=== PATIENT | female | born 1955 | race Caucasian/White ===

== ENCOUNTER 2016-03-23 15:29 | Emergency (ER) | payer MEDICARE, OTHER ==
[~2016-03-23] VITALS: Ht 152.4 cm; Wt 70.0 kg
[2016-03-23 15:29] VITALS: BP 135/71; PULSE 58; RESP 16; TEMP 98.2; O2SAT 93
[~2016-03-23 15:29] MED LIST: ALBU1AER INH; ATEN-100 PO; CYCL-36 PO; DILA100C PO; FURO20 PO; GEMF600T PO; HYDR-3133 PO; HYDR50TA94 PO; ISOS30TA3 PO; LEVA750T PO; LORA-392 PO; METF500 PO; MIRA33502 PO; MIRT30TA PO; NEUR600T PO; NYST100010 TOP; OMEP20TA PO; PRAV40TA2 PO; PRED10 PO; RISP1 PO; SPIRCAP INH; TYLE3 PO; Z.0.OXYGENDME NC; ZIPR80CA PO
[2016-03-23 15:44] VITALS: O2SAT 94
[2016-03-23] MEDS ORDERED: methylPREDNISolone SOD SUCC 125 MG/2 ML VIAL IVP ONE (15:45)
[2016-03-23] MEDS ORDERED: SODIUM CHLORIDE 0.9% FLUSH 5 ML FLUSH IVF PRN (15:45)
--- NOTE | 2016-03-23 15:46 | PD ---
HPI Chief Complaint: Respiratory Symptoms Time Seen by Provider: 15:33 Travel History International Travel<30 days: No Contact w/Intl Traveler<30days: No Traveled to known affect area: No History of Present Illness HPI The patient was seen and examined in the presence of the nurse. This patient is sent from her assisted living facility for shortness of breath. She has chronic COPD and continues to smoke. She has a nebulizer but didn't use it today. Her insight seems quite poor. Denies chest pain or syncope. She has some congestion and cough lately. Duration of symptoms is 2 days. Severity is moderate. No alleviating factors. PFSH Past Medical History Arthritis: No Asthma: No Autoimmune Disease: No Blood Disorders: No Bipolar Disorder: Yes Anxiety: Yes Depression: Yes Heart Rhythm Problems: No Cancer: No Cardiovascular Problems: Yes High Cholesterol: Yes (NO LONGER TAKING MEDICATION) Chemotherapy: No Chest Pain: No Congestive Heart Failure: Yes (on lasix) COPD: No Cerebrovascular Accident: No Coronary Artery Disease: No Diabetes: Yes Diminished Hearing: No Endocrine: No Gastrointestinal Disorders: No GERD: No Glaucoma: No Genitourinary: No Headaches: No Hepatitis: No Hiatal Hernia: No Hypertension: Yes Immune Disorder: No Implanted Vascular Access Dvce: No Insomnia: Yes Musculoskeletal: Yes Neurologic: Yes Psychiatric: Yes Reproductive: No Respiratory: Yes Migraines: No Myocardial Infarction: No Radiation Therapy: No Renal Failure: No Seizures: Yes (LAST SEIZURE WAS MAR 2011) Sickle Cell Disease: No Sleep Apnea: No Thyroid Disease: No Triglycerides - High: Yes Ulcer: No Menopausal: Yes : 1 Para: 1 Past Surgical History Abdominal Surgery: No AICD: No Appendectomy: No Arteriovenous Shunt: No Cardiac Surgery: No Section: Yes (1981) Cholecystectomy: No Ear Surgery: No Endocrine Surgery: No Eye Surgery: No Genitourinary Surgery: No Gynecologic Surgery: Yes (C SECTION 1981) Insulin Pump: No Joint Replacement: No Neurologic Surgery: No Oral Surgery: No Pacemaker: No Thoracic Surgery: No Other Surgery: No Social History Alcohol Use: No (denies) Tobacco Use: Yes (1PK A DAY quit one month ago, has been using patch) Substance Use: No Allergies-Medications (Allergen,Severity, Reaction): Coded Allergies: No Known Allergies (Verified , 05/17/15) Reported Meds & Prescriptions Reported Meds & Active Scripts Active Reported Albuterol Neb (Albuterol Sulfate) 2.5 Mg/3 Ml Neb 1 Vial NEB QID PRN Ibuprofen 800 Mg Tab 800 Mg PO TID PRN Dicyclomine (Dicyclomine HCl) 20 Mg Tab 20 Mg PO Q6HR PRN Proair Hfa 8.5 GM Inh (Albuterol Sulfate) 90 Mcg/Act Aer 2 Puff INH Q6H PRN 108 mcg/actuation Trazodone (Trazodone HCl) 150 Mg Tab 300 Mg PO HS Dilantin (Phenytoin Extended) 100 Mg Cap 300 Mg PO MOFR Take 3 capsule (300mg) at bedtime on Tuesday and Tuesday Dilantin (Phenytoin Extended) 100 Mg Cap 200 Mg PO SUTUWETHSA Take 2 capsules (200mg) at bedtime on Tuesday,Tuesday,Tuesday, and Tuesday Tizanidine (Tizanidine HCl) 4 Mg Tab 4 Mg PO TID Tylenol-Codeine #4 (Acetaminophen-Codeine) 300-60 mg Tab 1 Tab PO TID Lyrica (Pregabalin) 75 Mg Cap 75 Mg PO BID Claritin (Loratadine) 10 Mg Cap 10 Mg PO DAILY Geodon (Ziprasidone) 80 Mg Cap 80 Mg PO BID Lorazepam 0.5 Mg Tab 0.5 Mg PO BID Omeprazole 20 Mg Cap 20 Mg PO BID Tradjenta (Linagliptin) 5 Mg Tab 5 Mg PO DAILY Lasix (Furosemide) 20 Mg Tab 20 Mg PO DAILY Cefdinir 300 Mg Cap 300 Mg PO Q12HR 10 Days Isosorbide Mononitrate ER (Isosorbide Mononitrate) 30 Mg Teresa 30 Mg PO DAILY Atenolol 25 Mg Tab 25 Mg PO DAILY Review of Systems General / Constitutional: No: Fever Eyes: No: Visual changes HENT: No: Headaches Cardiovascular: No: Chest Pain or Discomfort Respiratory: Positive: Cough, Shortness of Breath, Wheezing Gastrointestinal: No: Abdominal Pain Genitourinary: No: Dysuria Musculoskeletal: No: Pain Skin: No Rash Neurologic: No: Weakness Psychiatric: No: Depression Endocrine: No: Polydipsia Hematologic/Lymphatic: No: Easy Bruising Physical Exam Narrative GENERAL: Well-nourished, well-developed patient in no apparent distress. SKIN: Warm and dry. HEAD: Atraumatic. Normocephalic. EYES: Pupils equal and round. No scleral icterus. No injection or drainage. ENT: No nasal bleeding or discharge. Mucous membranes pink and moist. NECK: Trachea midline. No JVD. CARDIOVASCULAR: Regular rate and rhythm. No murmur appreciated. RESPIRATORY: No accessory muscle use. Some rhonchi noted. Breath sounds equal bilaterally. GASTROINTESTINAL: Abdomen soft, non-tender, nondistended. Hepatic and splenic margins not palpable. MUSCULOSKELETAL: No obvious deformities. No clubbing. No cyanosis. No edema. NEUROLOGICAL: Awake and alert. No obvious cranial nerve deficits. Motor grossly within normal limits. Normal speech. PSYCHIATRIC: Appropriate mood and affect; insight and judgment seems weak Data Data Last Documented VS Vital Signs Date Time Temp Pulse Resp B/P Pulse Ox O2 Delivery O2 Flow Rate FiO2 03/23/16 15:44 94 Nasal Cannula 4 03/23/16 15:42 16 03/23/16 15:29 98.2 58 135/71 Orders Iv Access Insert/Monitor (03/23/16 15:41) Ecg Monitoring (03/23/16 15:41) Oximetry (03/23/16 15:41) Oxygen Administration (03/23/16 15:41) Chest, Single Ap (03/23/16 15:41) Sodium Chloride 0.9% Flush (Ns Flush) (03/23/16 15:45) Methylprednisolone So Succ Inj (Solumedr (03/23/16 15:45) Albuterol-Ipratropium Neb (Duoneb Neb) (03/23/16 15:45) MDM Medical Decision Making Medical Screen Exam Complete: Yes Emergency Medical Condition: Yes Medical Record Reviewed: Yes Differential Diagnosis Differential diagnosis includes COPD, asthma, pneumonia, bronchitis, CHF Narrative Course I have reviewed the patient's electronic medical record. Reviewed her shelter paperwork and medication list IV placed I gave her series of 3 nebulizer treatments and IV Solu-Medrol Saturations are low to mid 90s prior to treatment I reviewed her chest x-ray which is normal On recheck she feels improved. Saturation is 94% on room air She has nebulizers and steroids at the facility she lives. She also says she has no intention to stop smoking and will smoke when she gets home. I don't see any indication for hospital stay here. Diagnosis Primary Impression: COPD exacerbation Additional Impression: SOB (shortness of breath) Additional Instructions: The patient was advised to follow up with their physician and return if they worsen. Med/Other Pt SpecificInfo: Other Disposition: 03 DISCHARGE TO SNF Condition: Stable David James MD Mar 23, 2016 15:46
[2016-03-23] MEDS: RESP: ALBUTEROL 2.5 MG/IPRATROPIUM 0.5 MG NEB (SCH) INH ×2 (15:52→15:53)
--- NOTE | 2016-03-23 16:10 | RADRPT ---
EXAM DATE/TIME: 03/23/2016 15:48 [facility] COMPARISON: CHEST SINGLE AP, May 19, 2015, 2:07. INDICATIONS : Short of breath MEDICAL HISTORY : Chronic obstructive pulmonary disease. SURGICAL HISTORY : None. ENCOUNTER: Initial ACUITY: 1 day PAIN SCORE: 0/10 LOCATION: Bilateral chest FINDINGS: A single view of the chest demonstrates the lungs to be symmetrically aerated without evidence of mas s, infiltrate or effusion. There is hyperaeration of both lung shirley. The cardiomediastinal contour s are unremarkable. Osseous structures are intact. CONCLUSION: No acute pulmonary infiltrates. Rehan Bundy MD on March 23, 2016 at 16:08 Board Certified Radiologist. This report was verified electronically.
[2016-03-23] MEDS ORDERED: LYRI75CA PO (16:45)
[2016-03-23] MEDS ORDERED: TIZA4TAB PO (16:45)
[2016-03-23] MEDS ORDERED: IBUP800T23 PO (16:45)
[2016-03-23] MEDS ORDERED: ATEN25TA PO (16:45)
[2016-03-23] MEDS ORDERED: ALBU0.08 NEB (16:45)
[2016-03-23] MEDS ORDERED: TRAZ150T75 PO (16:45)
[2016-03-23] MEDS ORDERED: ISOS30TA3 PO (16:45)
[2016-03-23] MEDS ORDERED: CEFD300C PO (16:45)
[2016-03-23] MEDS ORDERED: DILA100C PO ×2 (16:45)
[2016-03-23] MEDS ORDERED: DICY20TA10 PO (16:45)
[2016-03-23] MEDS ORDERED: TRAZ50TA12 PO (16:45)
[2016-03-23] MEDS ORDERED: FURO1TAB62 PO (16:45)
[2016-03-23] MEDS ORDERED: TRAD5TAB PO (16:45)
[2016-03-23] MEDS ORDERED: TYLETAB36 PO (16:45)
[2016-03-23] MEDS ORDERED: GEOD80CA PO (16:45)
[2016-03-23] MEDS ORDERED: LORA-373 PO (16:45)
[2016-03-23] MEDS ORDERED: OMEP20CA2 PO (16:45)
[2016-03-23] MEDS ORDERED: CLAR10CA3 PO (16:45)
[2016-03-23] MEDS ORDERED: ALBUAER3 INH (16:45)
== END 2016-03-23 18:01 ==
LOC: NEPC 15:29
DX: J44.1 Chronic obstructive pulmonary disease with (acute) exacerbation (principal); F17.200 Nicotine dependence, unspecified, uncomplicated
CPT/HCPCS: 71010; 94640; 94664; 96374; 99284; J2930

== ENCOUNTER 2016-04-04 12:23 | Emergency (ER) | payer MEDICARE, OTHER ==
[~2016-04-04] VITALS: Ht 152.4 cm; Wt 75.0 kg
[~2016-04-04 12:23] MED LIST changes: +ALBU0.08 NEB; -ALBU1AER INH; +ALBUAER3 INH; -ATEN-100 PO; +ATEN25TA PO; +CEFD300C PO; +CLAR10CA3 PO; -CYCL-36 PO; +DICY20TA10 PO; +FURO1TAB62 PO; -FURO20 PO; -GEMF600T PO; +GEOD80CA PO; -HYDR-3133 PO; -HYDR50TA94 PO; +IBUP800T23 PO; -LEVA750T PO; +LORA-373 PO; -LORA-392 PO; +LYRI75CA PO; -METF500 PO; -MIRA33502 PO; -MIRT30TA PO; -NEUR600T PO; -NYST100010 TOP; +OMEP20CA2 PO; -OMEP20TA PO; -PRAV40TA2 PO; -PRED10 PO; -RISP1 PO; -SPIRCAP INH; +TIZA4TAB PO; +TRAD5TAB PO; +TRAZ150T75 PO; +TRAZ50TA12 PO; -TYLE3 PO; +TYLETAB36 PO; -Z.0.OXYGENDME NC; -ZIPR80CA PO
[2016-04-04 12:26] VITALS: BP 103/60; PULSE 67; RESP 16; TEMP 97.9; O2SAT 92
[2016-04-04] MEDS ORDERED: SODIUM CHLOR 0.9% 1000 ML INJ 1,000 ML IV ONE (12:50)
--- NOTE | 2016-04-04 12:57 | PD ---
HPI Chief Complaint: GI Complaint Time Seen by Provider: 12:52 Travel History International Travel<30 days: No Contact w/Intl Traveler<30days: No Traveled to known affect area: No History of Present Illness HPI 60-year-old female that presents to the ED for evaluation of constipation. Per patient she's been constipated for 32 days. She tells me that she has not had a good bowel movement since. She does tell me that she takes a lot of pain medication secondary to back problems. She takes Lyrica and opiates. She denies any chest pain or shortness of breath. No cold like symptoms. Per patient her COPD was improved after being evaluated a week ago. When asked why she didn't mention this to the doctor on her previous visit a week ago she states that she forgot. She states that she's been trying everything over-the- counter. She is not specific as to what she has been taking. She lives an assisted-living facility secondary to chronic medical problems and seizure disorder. Of note patient appears to have poor insight and this appears to be the same observation that previous providers have made. She does complain of some abdominal pain which is 10 out of 10. Per patient she feels like she has to go but she has not. She denies any urinary issues state that she takes a diuretic with good results. She denies any cough or runny nose. No other medical problems. Unclear if she is mention this to her primary care doctor. She denies any blood. She denies any recent surgeries to her abdomen other than a . PFSH Past Medical History Arthritis: No Asthma: No Autoimmune Disease: No Blood Disorders: No Bipolar Disorder: Yes Anxiety: Yes Depression: Yes Heart Rhythm Problems: No Cancer: No Cardiovascular Problems: Yes (htn) High Cholesterol: Yes (NO LONGER TAKING MEDICATION) Chemotherapy: No Chest Pain: No Congestive Heart Failure: Yes (on lasix) COPD: No Cerebrovascular Accident: No Coronary Artery Disease: No Diabetes: Yes Diminished Hearing: No Endocrine: No Gastrointestinal Disorders: No GERD: No Glaucoma: No Genitourinary: No Headaches: No Hepatitis: No Hiatal Hernia: No Hypertension: Yes Immune Disorder: No Implanted Vascular Access Dvce: No Insomnia: Yes Musculoskeletal: Yes Neurologic: Yes Psychiatric: Yes Reproductive: No Respiratory: Yes Migraines: No Myocardial Infarction: No Radiation Therapy: No Renal Failure: No Seizures: Yes (LAST SEIZURE WAS MAR 2011) Sickle Cell Disease: No Sleep Apnea: No Thyroid Disease: No Triglycerides - High: Yes Ulcer: No ?: Not Menopausal: Yes : 1 Para: 1 Past Surgical History Abdominal Surgery: No AICD: No Appendectomy: No Arteriovenous Shunt: No Cardiac Surgery: No Section: Yes (1981) Cholecystectomy: No Ear Surgery: No Endocrine Surgery: No Eye Surgery: No Genitourinary Surgery: No Gynecologic Surgery: Yes Hysterectomy: Yes Insulin Pump: No Joint Replacement: No Neurologic Surgery: No Oral Surgery: No Pacemaker: No Thoracic Surgery: No Other Surgery: No Social History Alcohol Use: No (denies) Tobacco Use: Yes (1PK A DAY quit one month ago, has been using patch) Substance Use: No Allergies-Medications (Allergen,Severity, Reaction): Coded Allergies: No Known Allergies (Verified , 05/17/15) Reported Meds & Prescriptions Reported Meds & Active Scripts Active Miralax Powder (Polyethylene Glycol 3350 Powder) 17 Gm Powd 17 Gm PO DAILY Mix and dissolve one measuring cap-ful (17 grams) in water or juice. Golytely 236 gm (Polyethylene Glycol/Electrolytes) 4,000 Ml Soln 4,000 Ml PO ONCE PRN Reported Tradjenta (Linagliptin) 5 Mg Tab 5 Mg PO DAILY Albuterol Neb (Albuterol Sulfate) 2.5 Mg/3 Ml Neb 1 Vial NEB QID PRN Dicyclomine (Dicyclomine HCl) 20 Mg Tab 20 Mg PO Q6HR PRN Proair Hfa 8.5 GM Inh (Albuterol Sulfate) 90 Mcg/Act Aer 2 Puff INH Q6H PRN 108 mcg/actuation Trazodone (Trazodone HCl) 150 Mg Tab 300 Mg PO HS Dilantin (Phenytoin Extended) 100 Mg Cap 300 Mg PO MOFR Take 3 capsule (300mg) at bedtime on Tuesday and Tuesday Dilantin (Phenytoin Extended) 100 Mg Cap 200 Mg PO SUTUWETHSA Take 2 capsules (200mg) at bedtime on Tuesday,Tuesday,Tuesday, and Tuesday Trazodone (Trazodone HCl) 50 Mg Tab 50 Mg PO DAILY Tizanidine (Tizanidine HCl) 4 Mg Tab 4 Mg PO TID Tylenol-Codeine #4 (Acetaminophen-Codeine) 300-60 mg Tab 1 Tab PO TID Lyrica (Pregabalin) 75 Mg Cap 75 Mg PO BID Claritin (Loratadine) 10 Mg Cap 10 Mg PO DAILY Geodon (Ziprasidone) 80 Mg Cap 80 Mg PO BID Lorazepam 0.5 Mg Tab 0.5 Mg PO BID Omeprazole 20 Mg Cap 20 Mg PO BID Lasix (Furosemide) 20 Mg Tab 40 Mg PO DAILY Isosorbide Mononitrate ER (Isosorbide Mononitrate) 30 Mg Teresa 30 Mg PO DAILY Atenolol 25 Mg Tab 25 Mg PO DAILY Review of Systems Except as stated in HPI: all other systems reviewed are Neg Physical Exam Narrative GENERAL: SKIN: Warm and dry. HEAD: Atraumatic. Normocephalic. EYES: Pupils equal and round. No scleral icterus. No injection or drainage. ENT: No nasal bleeding or discharge. Mucous membranes pink and moist. Tongue is midline. No Uvula deviation. NECK: Trachea midline. No JVD. CARDIOVASCULAR: Regular rate and rhythm. No murmurs, S3, S4. RESPIRATORY: No accessory muscle use. Clear to auscultation. Breath sounds equal bilaterally. GASTROINTESTINAL: Abdomen soft, slight tenderness to palpation in the lower abdomen, nondistended. Hepatic and splenic margins not palpable. MUSCULOSKELETAL: Extremities without clubbing, cyanosis, or edema. No obvious deformities. Full range of motion of the upper and lower extremities bilaterally. 2+ pulses bilaterally. NEUROLOGICAL: Awake and alert. No obvious cranial nerve deficits. Motor grossly within normal limits. Five out of 5 muscle strength in the arms and legs. Normal speech. PSYCHIATRIC: Appropriate mood and affect; insight and judgment normal. Data Data Last Documented VS Vital Signs Date Time Temp Pulse Resp B/P Pulse Ox O2 Delivery O2 Flow Rate FiO2 04/04/16 13:59 17 04/04/16 12:26 97.9 67 103/60 92 Orders Complete Blood Count With Diff (04/04/16 12:40) Comprehensive Metabolic Panel (04/04/16 12:40) Lipase (04/04/16 12:40) Urinalysis - C+S If Indicated (04/04/16 12:40) Iv Access Insert/Monitor (04/04/16 12:40) Ct Abd/Pel W Iv Contrast(Rout) (04/04/16 12:50) Sodium Chlor 0.9% 1000 Ml Inj (Ns 1000 M (04/04/16 12:50) Iohexol 350 Inj (Omnipaque 350 Inj) (04/04/16 14:14) Labs Laboratory Tests Test 04/04/16 12:51 White Blood Count 10.9 TH/MM3 Red Blood Count 4.19 MIL/MM3 Hemoglobin 15.0 GM/DL Hematocrit 41.9 % Mean Corpuscular Volume 100.2 FL Mean Corpuscular Hemoglobin 35.9 PG Mean Corpuscular Hemoglobin 35.8 % Concent Red Cell Distribution Width 13.0 % Platelet Count 274 TH/MM3 Mean Platelet Volume 7.9 FL Neutrophils (%) (Auto) 75.5 % Lymphocytes (%) (Auto) 16.5 % Monocytes (%) (Auto) 5.3 % Eosinophils (%) (Auto) 1.7 % Basophils (%) (Auto) 1.0 % Neutrophils # (Auto) 8.2 TH/MM3 Lymphocytes # (Auto) 1.8 TH/MM3 Monocytes # (Auto) 0.6 TH/MM3 Eosinophils # (Auto) 0.2 TH/MM3 Basophils # (Auto) 0.1 TH/MM3 CBC Comment DIFF FINAL Differential Comment Urine Color YELLOW Urine Turbidity HAZY Urine pH 6.0 Urine Specific [place] 1.007 Urine Protein NEG mg/dL Urine Glucose (UA) NEG mg/dL Urine Ketones NEG mg/dL Urine Occult Blood NEG Urine Nitrite NEG Urine Bilirubin NEG Urine Urobilinogen LESS THAN 2.0 MG/DL Urine Leukocyte Esterase NEG Urine WBC LESS THAN 1 /hpf Urine Squamous Epithelial 3 /hpf Cells Urine Bacteria FEW /hpf Urine Hyaline Casts 11 /lpf Urine Mucus FEW /lpf Urine Yeast (Budding) RARE Microscopic Urinalysis Comment CULT NOT INDICATED Sodium Level 139 MEQ/L Potassium Level 3.7 MEQ/L Chloride Level 104 MEQ/L Carbon Dioxide Level 28.7 MEQ/L Anion Gap 6 MEQ/L Blood Urea Nitrogen 7 MG/DL Creatinine 0.66 MG/DL Estimat Glomerular Filtration 92 ML/MIN Rate Random Glucose 91 MG/DL Calcium Level 8.1 MG/DL Total Bilirubin 0.4 MG/DL Aspartate Amino Transf 11 U/L (AST/SGOT) Alanine Aminotransferase 14 U/L (ALT/SGPT) Alkaline Phosphatase 122 U/L Total Protein 6.4 GM/DL Albumin 2.9 GM/DL Lipase 47 U/L MDM Medical Decision Making Medical Screen Exam Complete: Yes Emergency Medical Condition: Yes Medical Record Reviewed: Yes Interpretation(s) CBC & BMP Diagram 04/04/16 12:51 LFTs and Lipase WNL UA negative Ct of the abdomen showed sigmoid diverticulitis vs colitis Differential Diagnosis Obstruction versus constipation versus UTI versus constipation secondary to opiate abuse versus medication side effect versus normal exam Narrative Course 60-year-old female that presents to the for evaluation of constipation. Patient was properly examined and was found to have signs and symptoms consistent appears to be constipation. From my evaluation this appears to be chronic likely secondary to patient's pain medication side effects. I do recommend imaging to rule out any sign of mechanical obstruction causing the constipation as she does have some pain on the lower abdomen on exam. My recommendation IS to do labs. Patient is agreeable with this plan. Patient was started on IV fluids. Labs and imaging showed diverticulitis vs colitis but no obstruction or constipation. Case discussed with attending Dr Vines who recommends outpatient treatment with antibiotics. Patient was told to increase fluids. F/u PCP. See ED if worsening symptoms. Diagnosis Primary Impression: Diverticulitis large intestine Qualified Code: K57.32 - Diverticulitis of large intestine without perforation or abscess without bleeding Patient Instructions: General Instructions Additional Instructions: Liquid diet until better. Take meds as prescribed. F/u PCP this week. See ED if worst. Med/Other Pt SpecificInfo: Prescription(s) given Scripts Ciprofloxacin (Cipro)500 Mg [id number] Mg PO BID 10 Days Ref 0 Prov:Georgi Vines MD 04/04/16 Metronidazole (Flagyl)500 Mg Llr878 Mg PO QID 10 Days Ref 0 Prov:Georgi Vines MD 04/04/16 Polyethylene Glycol 3350 Powder (Miralax Powder)17 Gm Powd17 Gm PO DAILY #1 BOTTLE Ref 0 Mix and dissolve one measuring cap-ful (17 grams) in water or juice. Prov:Georgi Vines MD 04/04/16 Disposition: 01 DISCHARGE HOME Condition: Jason Crow Apr 04, 2016 12:57
[2016-04-04 13:08] LABS: BACTERIA, URINE FEW /hpf; BLOOD, URINE NEG (NEG); COMMENT (UR) CULT NOT INDICATED; CULTURE IF INDICATED CULT NOT INDICATED; GLUCOSE,URINE NEG (NEG); HYALINE CAST, URINE 11 /lpf (RARE); KETONE, URINE NEG (NEG); MUCUS URINE FEW /lpf (OCC); NITRITE,URINE NEG (NEG); SQUAMOUS EPITHELIAL CELL URINE 3 /hpf (0-5); URINE COLOR YELLOW (YELLW/STRAW)
[2016-04-04 13:11] LABS: AUTOMATED NEUTROPHIL # 8.2 TH/MM3 (1.8-7.7); BASOPHIL # 0.1 TH/MM3 (0-0.2); EOSINOPHIL # 0.2 TH/MM3 (0-0.4); EOSINOPHIL % 1.7 % (0.0-4.0); HEMATOCRIT 41.9 % (35.0-46.0); HEMO FLAGS DIFF FINAL; LYMPH % 16.5 % (9.0-44.0); LYMPHOCYTE # 1.8 TH/MM3 (1.0-4.8); MEAN CELL VOLUME 100.2 FL (80.0-100.0); MEAN CORPUSCULAR HEMOGLOBIN 35.9 PG (27.0-34.0); MEAN CORPUSCULAR HGB CONC 35.8 % (32.0-36.0); MONO % 5.3 % (0.0-8.0); NEUT % 75.5 % (16.0-70.0); PLATELET COUNT 274 TH/MM3 (150-450); RED BLOOD COUNT 4.19 MIL/MM3 (4.00-5.30); WHITE BLOOD COUNT 10.9 TH/MM3 (4.0-11.0)
[2016-04-04 13:26] LABS: ALT (GPT) 14 U/L (10-53); ANION GAP 6 MEQ/L (5-15); AST (GOT) 11 U/L (15-37); BICARBONATE 28.7 MEQ/L (21.0-32.0); BLOOD UREA NITROGEN 7 MG/DL (7-18); CHLORIDE 104 MEQ/L (98-107); GLOMERULAR FILTRATION RATE 92 ML/MIN (>89); POTASSIUM 3.7 MEQ/L (3.5-5.1); SODIUM (NA) 139 MEQ/L (136-145)
[2016-04-04 13:28] LABS: ALKALINE PHOSPHATASE 122 U/L (45-117); TOTAL BILIRUBIN ADULT 0.4 MG/DL (0.2-1.0)
[2016-04-04] MEDS ORDERED: MIRA33504 PO (13:43)
[2016-04-04] MEDS ORDERED: COLY4000S PO (13:43)
[2016-04-04] MEDS ORDERED: TRAD5TAB PO (14:14)
[2016-04-04] MEDS ORDERED: IOHEXOL 350 MG/ML 10 ML VIAL (for RAD DIAG) IV ONE (14:14)
--- NOTE | 2016-04-04 14:17 | RADRPT ---
EXAM DATE/TIME: 04/04/2016 14:02 [facility] COMPARISON: No previous studies available for comparison. INDICATIONS : Abdomen pain. IV CONTRAST: 81 cc Omnipaque 350 (iohexol) IV ORAL CONTRAST: No oral contrast ingested. RADIATION DOSE: 10.98 CTDIvol (mGy) MEDICAL HISTORY : Congestive hearrt failure. Chronic obstructive pulmonary disease. SURGICAL HISTORY : Hysterectomy. ENCOUNTER: Initial ACUITY: 1 day PAIN SCALE: 5/10 LOCATION: Bilateral abdomen TECHNIQUE: Volumetric scanning of the abdomen and pelvis was performed. Using automated exposure control and ad justment of the mA and/or kV according to patient size, radiation dose was kept as low as reasonably achievable to obtain optimal diagnostic quality images. FINDINGS: LOWER LUNGS: The visualized lower lungs are clear. LIVER: Homogeneous density without lesion. There is no dilation of the biliary tree. No calcified gallston es. SPLEEN: Normal size without lesion. PANCREAS: Within normal limits. KIDNEYS: Normal in size and shape. There is no mass, stone or hydronephrosis. ADRENAL GLANDS: Within normal limits. VASCULAR: There is no aortic aneurysm. BOWEL/MESENTERY: The stomach, small bowel, and colon demonstrate no acute abnormality. There is no free intraperitone al air or fluid. There is some inflammation around the sigmoid colon without any discrete diverticula still most likely diverticulitis versus colitis ABDOMINAL WALL: Within normal limits. RETROPERITONEUM: There is no lymphadenopathy. BLADDER: No wall thickening or mass. REPRODUCTIVE: Within normal limits. INGUINAL: There is no lymphadenopathy or hernia. MUSCULOSKELETAL: Within normal limits for patient age. CONCLUSION: Small amount of inflammation around sigmoid colon diverticulitis versus a colitis. No evidence of obs truction abscess or drainable fluid collection Roque Levy MD on April 04, 2016 at 14:14 Board Certified Radiologist. This report was verified electronically.
[2016-04-04] MEDS ORDERED: CIPR-9 PO (14:43)
[2016-04-04] MEDS ORDERED: METR-1 PO (14:43)
[2016-04-04 15:33] VITALS: BP 135/82
== END 2016-04-04 15:46 | disposition home or self-care (01) ==
LOC: NEPE 12:23
DX: K57.32 Diverticulitis of large intestine without perforation or abscess without bleeding (principal); J44.9 Chronic obstructive pulmonary disease, unspecified; R56.9 Unspecified convulsions; I10 Essential (primary) hypertension; I50.9 Heart failure, unspecified; E11.9 Type 2 diabetes mellitus without complications; F17.210 Nicotine dependence, cigarettes, uncomplicated
CPT/HCPCS: 74177; 80053; 81001; 83690; 85025; 96360; 99284; J7030; Q9967